=== PATIENT | male | born 1945 | race Caucasian/White ===

== ENCOUNTER 2017-10-28 06:26 | Day surgery (SDC) | payer MEDICARE, MEDICAID ==
[~2017-10-28] VITALS: Ht 172.7 cm; Wt 74.8 kg
[~2017-10-28 06:26] MED LIST: AMLODIPINE5 MG PO
[2017-10-28 11:15] VITALS: BP 149/71
== END 2017-10-28 11:00 | disposition home or self-care (01) ==
LOC: ENDO 06:26 → ORM 12:00 → ENDO 12:30
PROVIDERS: ATTEND Internal Medicine Gastroenterology
PROC: 0DB48ZX Excision of Esophagogastric Junction, Via Natural or Artificial Opening Endoscopic, Diagnostic (ICD-10-PCS; principal; 2017-10-28)
PROC: 0DBP8ZX Excision of Rectum, Via Natural or Artificial Opening Endoscopic, Diagnostic (ICD-10-PCS; 2017-10-28)
PROC: 0DBL8ZX Excision of Transverse Colon, Via Natural or Artificial Opening Endoscopic, Diagnostic (ICD-10-PCS; 2017-10-28)
PROC: 0DBN8ZX Excision of Sigmoid Colon, Via Natural or Artificial Opening Endoscopic, Diagnostic (ICD-10-PCS; 2017-10-28)
DX: R19.5 Other fecal abnormalities (principal); K21.0 Gastro-esophageal reflux disease with esophagitis; D12.7 Benign neoplasm of rectosigmoid junction; D12.5 Benign neoplasm of sigmoid colon; D12.3 Benign neoplasm of transverse colon; K62.1 Rectal polyp; K22.70 Barrett's esophagus without dysplasia; K44.9 Diaphragmatic hernia without obstruction or gangrene; K64.4 Residual hemorrhoidal skin tags; K57.30 Diverticulosis of large intestine without perforation or abscess without bleeding; K64.8 Other hemorrhoids; I10 Essential (primary) hypertension